=== PATIENT | male | born 1995 | race Caucasian/White ===

== ENCOUNTER 2020-04-21 11:23 | Emergency (ER) | payer OTHER ==
[2020-04-21] MEDS ORDERED: DICLOFENAC SODI75 MG PO (13:32)
[2020-04-21] MEDS ORDERED: CYCLOBENZAPRINE10 MG PO (13:32)
== END 2020-04-21 13:54 | disposition home or self-care (01) ==
LOC: FER 11:23
DX: S70.12XA Contusion of left thigh, initial encounter (principal); M25.552 Pain in left hip; F17.200 Nicotine dependence, unspecified, uncomplicated; W19.XXXA Unspecified fall, initial encounter
CPT/HCPCS: 73502; 73552